=== PATIENT | female | born 1950 | race Caucasian/White ===

== ENCOUNTER → 2021-02-06 15:54 | Outpatient (CLI) | payer MEDICARE, OTHER, SELFPAY ==
--- NOTE | 2021-02-06 | DI.ECHO.S_ITS ---
Version: 1 Study ID: [id number] [place] [id number] Name: NATALIE ROSSI Study Date: 02/06/2021, 4: 56 PM : 1950 BP: 145 / 76 mmHg Gender: Female Height: 67 in Age: 70 Years Weight: 185 lb BSA: 1.96 mA? Ordering: MARTHA DAVID Referring: MARTHA DAVID Clinician: Miri Lopes Reason For Study: CHEST PAIN History: Summary Statements Normal sinus rhythm. Normal LV size, wall thickness, wall motion and LV systolic function. EF is 65-70%. Normal chamber sizes. Aortic sclerosis without stenosis. Otherwise no significant valvular abnormalities. Compared to prior study 10/04/2010 no significant changes have occurred. Procedure: A two-dimensional transthoracic echocardiogram with color flow and Doppler was performed. Comparison is made with the echocardiogram of 10/04/2010. The study quality was technically difficult. The patient was in sinus rhythm with heart rates between 79-90 bpm during the exam. Left Ventricle: The left ventricle is normal in size and wall thickness. The ejection fraction is estimated to be 65-70%. Diastolic parameters suggest a relaxation abnormality of the left ventricle, consistent with probable normal filling pressures. E/A reversal. Right Ventricle: The right ventricle is normal in size and function. Atria: The left atrial size is normal. Right atrial size is normal. There is no Doppler evidence for an interatrial shunt. Mitral Valve: The mitral valve is normal in structure and function. There is mild mitral annular calcification. There is trace mitral regurgitation. Aortic Valve: The aortic valve is trileaflet. The aortic valve is slightly calcified. There is no aortic valve stenosis. No aortic regurgitation is present. Tricuspid Valve: The tricuspid valve is normal in structure and function. There is trace tricuspid regurgitation. Pulmonic Valve: The pulmonic valve leaflets are thin and pliable; valve motion is normal. There is no pulmonic valvular regurgitation. Great Vessels: The aortic root is normal size. The dimensions of the ascending aorta are normal. The inferior vena cava was not well visualized. Pericardium/ Pleura: There is no pericardial effusion. There is no pleural effusion. 2D and M-Mode Measurements and Calculations LVIDd: 3.6 cm LVOT diam: 1.90 cm LVIDs: 2.45 cm Ao root diam: 2.6 cm IVSd: 0.97 cm asc Aorta Diam: 2.9 cm LVPWd: 1.13 cm Ao Arch Diam (Prox Trans): 2.41 cm LV braxton. diameter/BSA (cm/m^2): 1.85 LV sys. diameter/BSA (cm/m^2): 1.25 RVD1 (basal): 2.7 cm TAPSE: 1.81 cm LA A4 area: 14.4 jail keeper? RA area: 10.7 jail keeper? LA A2 area: 18.7 jail keeper? RA long axis: 3.8 cm LA length (vol): 4.6 cm RA vol: 25.4 ml LA vol: 49.8 ml RA : 13.0 ml/mA? LA vol index: 25.5 ml/mA? Doppler Measurements and Calculations Ao V2 max: 146.1 cm/sec LVOT Max Anthony: 106.7 cm/sec Ao V2 mean: 109.2 cm/sec LV V1 max P.6 mmHg Ao V2 VTI: 26.6 cm LV V1 VTI: 24.6 cm Ao max P.5 mmHg Ao mean P.2 mmHg EL(I,D): 2.6 jail keeper? EL(V,D): 2.06 jail keeper? EL indexed to BSA (cm^2/m^2): 1.33 sev ratio: 0.92 MV E max anthony: 68.1 cm/sec MV dec time: 0.27 sec MV A max anthony: 86.7 cm/sec MV E/A: 0.79 Med Peak E' Anthony: 6.6 cm/sec Lat Peak E' Anthony: 5.4 cm/sec E/e' average: 11.5 PA V2 max: 100.1 cm/sec PA mean P.6 mmHg Electronically signed by: Nyasia Whitley M.D. 02/06/2021, 9: 24 PM
== END ==
PROVIDERS: PCP Family Medicine; Referring Provider Internal Medicine Cardiovascular Disease; Visit Provider Internal Medicine Cardiovascular Disease
DX: R07.9 Chest pain, unspecified (principal); I35.8 Other nonrheumatic aortic valve disorders
CPT/HCPCS: 93306

== ENCOUNTER 2024-08-19 22:05 | Emergency (ER) | payer MEDICARE, OTHER, SELFPAY ==
[2024-08-19] VITALS (30 sets, daily range): BP systolic 66–160; BP diastolic 35–68; PULSE 66–89; RESP 12–34; TEMP 36.1; O2SAT 94–99; BMI 29.3
--- NOTE | 2024-08-19 22:09 | EKG_ITS ---
[facility] [address] [place] [address] Test Date: 2024-08-19 Pat Name: Paula Araya Department: [facility] Room: Gender: Female Test Manager: : 1950 Requested By: Order Number: [id number] Reading MD: Alan Bowen Measurements Intervals [place] Rate: 82 P: 53 W[place]: 196 QRS: 63 QRSD: 88 T: 260 QT: 390 QTc: 455 Interpretive Statements Sinus rhythm with occasional premature ventricular complexes Marked ST abnormality, possible lateral subendocardial injury Electronically Signed On 08-23-2024 20:09:30 PDT by Alan Bowen
--- NOTE | 2024-08-19 22:14 | DI.RAD.S_ITS ---
PROCEDURE: XR CHEST 1V INDICATIONS: dispnea TECHNIQUE: One view of the chest was acquired. COMPARISON: [facility], CR, XR CHEST 1 VIEW, 08/06/2024, 3:15. FINDINGS: Surgical changes and devices: None. Lungs and pleura: Mild increased pulmonary vascularity. Mediastinum: Mediastinal contours appear normal. Heart size is normal. Bones and chest wall: No suspicious bony lesions. Overlying soft tissues appear unremarkable. IMPRESSION: Increased vascularity suggestive of edema. Dictated by: Amy Escudero M.D. on 08/19/2024 at 22:45 Approved by: Amy Escudero M.D. on 08/19/2024 at 22:45
--- NOTE | 2024-08-19 22:15 | ED_ITS ---
HPI - General Adult <Shey Boyd MD - Last Filed: 08/21/24 01:22> General Chief complaint: Shortness of Breath/Dyspnea Stated complaint: respir failure Time Seen by Provider: 08/19/24 22:11 History of Present Illness HPI narrative: 73-year-old woman with a history of NSTEMI discharged from [facility] on August 09 after medical treatment and declining heart catheterization, hypertension, type 2 diabetes continued tobacco abuse, chronic kidney disease, COPD. 911 was called today with complaints for dyspnea and chest pain. On arrival they describe primary respiratory arrest with pulses maintained. With bagging she was becoming more alert. She was placed on BiPAP, nitro paste was placed and she was brought to the emergency room for further evaluation. She remains in acute respiratory distress, tripoding and having difficulty cooperating secondary to severe respiratory distress. Able to communicate with hand signals and has difficulty getting even a single word out. Related Data Home Medications Medication Instructions Recorded Confirmed ASPIRIN (#ASPIR 81) 81 mg PO BID ##0 01/28/11 Ascorbic Acid/Bioflavonoid 1 tab PO AMINS ##0 01/28/11 (#VITAMIN C) Fish Oil 1,000 mg PO Q DAY ##0 01/28/11 MULTIVITAMIN (FLINTSTONES) 1 ctb PO ##0 01/28/11 ezetimibe 10 mg tablet (Zetia) 10 mg PO HS ##0 01/28/11 glipizide 10 mg tablet, extended 20 mg PO BID ##0 01/28/11 release 24 hr (Glucotrol XL) losartan 25 mg tablet (Cozaar) ##0 01/28/11 simvastatin 10 mg tablet (Zocor) ##0 01/28/11 Allergies Allergy/AdvReac Type Severity Reaction Status Date / Time No Known Drug Allergies Allergy Verified 08/19/24 22:57 Review of Systems <Shey Boyd MD - Last Filed: 08/21/24 01:22> Review of Systems ROS Unobtainable: Unobtainable due to medical condition Patient History <Shey Boyd MD - Last Filed: 08/21/24 01:22> Medical History (Updated 08/20/24 @ 01:24 by Shey Boyd MD) Continuous tobacco abuse Hyperlipidemia Diabetes Coronary artery disease Hypertension Social History Smoking Status: Current every day smoker Exam <Shey Boyd MD - Last Filed: 08/21/24 01:22> Narrative Exam Narrative: General: Chronically ill-appearing in severe respiratory distress, unable to speak, BiPAP in place, tripoding HEENT: Moist mucous membranes, normal sclera with reactive pupils, Respiratory: Lungs with poor respiratory movement throughout Cardiac: Regular rate and rhythm overlying pulmonary noises make further cardiac evaluation difficult Abdomen: Soft, nontender, no rebound or guarding, no flank pain Skin: Dry, pale Neurologic: Globally weak with no localizing findings Extremities: 2+ bilateral lower extremity edema Initial Vital Signs Initial Vital Signs: Vital Signs Temperature 97.0 F L 08/19/24 22:06 Pulse Rate 89 08/19/24 22:06 Respiratory Rate 34 H 08/19/24 22:06 Blood Pressure 84/56 L 08/19/24 22:06 Pulse Oximetry 94 08/19/24 22:06 Oxygen Delivery Method CPAP 08/19/24 22:06 <Tiffany Alcantar DO - Last Filed: 08/20/24 16:22> Initial Vital Signs Initial Vital Signs: Vital Signs Temperature 97.0 F L 08/19/24 22:06 Pulse Rate 89 08/19/24 22:06 Respiratory Rate 34 H 08/19/24 22:06 Blood Pressure 84/56 L 08/19/24 22:06 Pulse Oximetry 94 08/19/24 22:06 Oxygen Delivery Method CPAP 08/19/24 22:06 Course <Shey Boyd MD - Last Filed: 08/21/24 01:22> Orders Ordered: Discontinued Medications Albuterol/Ipratropium (Albuterol/Ipratropium 3 Ml Ampul) 3 ml INH NOW ONE Stop: 08/19/24 23:25 Last Admin: 08/19/24 23:28 Dose: 3 ml Documented By: SUSAN Aspirin (Aspirin 81 Mg Chew Tab) 324 mg PO NOW ONE Stop: 08/20/24 09:39 Last Admin: 08/20/24 10:47 Dose: 324 mg Documented By: RB Furosemide (Furosemide 40 Mg/4 Ml Vial) 40 mg IV NOW ONE Stop: 08/20/24 08:09 Last Admin: 08/20/24 08:47 Dose: 40 mg Documented By: RB Heparin Sodium (Porcine) (Heparin 5,000 Unit/Ml Vial) 5,000 unit 60 unit/kg (5000 unit) IV NOW ONE Stop: 08/20/24 01:18 Last Admin: 08/20/24 01:22 Dose: 5,000 unit Documented By: MAYRA NOREPINEPHRINE BITARTRATE/D5W (Levophed) 4 mg in 250 mls @ 31.876 mls/hr IV TITRATE ISAI; Protocol Last Titration: 08/20/24 10:03 Dose: Infused Documented By: Titration: 08/20/24 05:03 Dose: 0 mcg/kg/min, 0 mls/hr Documented By: Titration: 08/20/24 01:11 Dose: 0.04 mcg/kg/min, 12.75 mls/hr Documented By: Titration: 08/20/24 00:15 Dose: 0.06 mcg/kg/min, 19.126 mls/hr Documented By: Titration: 08/19/24 23:41 Dose: 0.08 mcg/kg/min, 25.501 mls/hr Documented By: DKDot Titration: 08/19/24 23:32 Dose: 0.1 mcg/kg/min, 31.876 mls/hr Documented By: DKDot Titration: 08/19/24 22:56 Dose: 0.12 mcg/kg/min, 38.251 mls/hr Documented By: Admin: 08/19/24 22:48 Dose: 0.1 mcg/kg/min, 31.876 mls/hr Documented By: SUSAN Furosemide 80 mg/ Sodium (Chloride) 58 mls @ 116 mls/hr IV NOW ONE Stop: 08/19/24 23:09 Last Infusion: 08/19/24 23:47 Dose: Infused Documented By: Admin: 08/19/24 23:15 Dose: 116 mls/hr Documented By: SUSAN Heparin Sodium/Dextrose (Heparin Drip) 25,000 unit in 500 mls @ 20.401 mls/hr IV CONT ISAI; Protocol Last Titration: 08/20/24 10:50 Dose: 10 units/kg/hr, 17.001 mls/hr Documented By: RB Co-signed By: HALEY Titration: 08/20/24 09:26 Dose: 10 units/kg/hr, 17.001 mls/hr Documented By: RB Co-signed By: HALEY(2) Titration: 08/20/24 08:57 Dose: 0 units/kg/hr, 0 mls/hr Documented By: AVE Co-signed By: HALEY Admin: 08/20/24 01:26 Dose: 12 units/kg/hr, 20.401 mls/hr Documented By: MAYRA Co-signed By: SUSAN Oxycodone/Acetaminophen (Oxycodone/Acetaminophen 5/325 Tablet) 1 tab PO NOW ONE Stop: 08/20/24 07:11 Last Admin: 08/20/24 08:47 Dose: 1 tab Documented By: AVE Vital Signs Vital signs: Vital Signs - 8 hr 08/20/24 08:25 08/20/24 08:30 08/20/24 08:35 Temperature Pulse Rate 79 83 83 Respiratory Rate 13 17 37 H Blood Pressure Pulse Oximetry 95 92 Oxygen Delivery Method Nasal Cannula Nasal Cannula Oxygen Flow Rate 4 4 08/20/24 08:44 08/20/24 08:45 08/20/24 08:50 Temperature Pulse Rate 81 78 75 Respiratory Rate 22 22 Blood Pressure Pulse Oximetry 92 Oxygen Delivery Method Room Air Oxygen Flow Rate 08/20/24 09:00 08/20/24 09:00 08/20/24 09:15 Temperature Pulse Rate 76 73 Respiratory Rate 19 17 Blood Pressure 144/88 H Pulse Oximetry 92 93 Oxygen Delivery Method Room Air Room Air Oxygen Flow Rate 08/20/24 09:16 08/20/24 09:16 08/20/24 09:30 Temperature Pulse Rate 74 Respiratory Rate 15 Blood Pressure 151/72 H 135/68 Pulse Oximetry 93 Oxygen Delivery Method Room Air Oxygen Flow Rate 08/20/24 09:30 08/20/24 09:45 08/20/24 09:45 Temperature Pulse Rate 75 75 Respiratory Rate 19 20 Blood Pressure 158/70 H Pulse Oximetry 90 L 91 Oxygen Delivery Method Room Air Room Air Oxygen Flow Rate 08/20/24 10:00 08/20/24 10:00 08/20/24 10:15 Temperature Pulse Rate 75 74 Respiratory Rate 15 17 Blood Pressure 125/55 L Pulse Oximetry 86 L Oxygen Delivery Method Room Air Oxygen Flow Rate 08/20/24 10:15 08/20/24 10:30 08/20/24 10:30 Temperature Pulse Rate 72 Respiratory Rate 22 Blood Pressure 117/58 L 116/56 L Pulse Oximetry 98 Oxygen Delivery Method Oximask Oxygen Flow Rate 2 08/20/24 10:54 Temperature 97.9 F Pulse Rate Respiratory Rate Blood Pressure Pulse Oximetry Oxygen Delivery Method Oxygen Flow Rate <Tiffany Alcantar DO - Last Filed: 08/20/24 16:22> Orders Ordered: Discontinued Medications Albuterol/Ipratropium (Albuterol/Ipratropium 3 Ml Ampul) 3 ml INH NOW ONE Stop: 08/19/24 23:25 Last Admin: 08/19/24 23:28 Dose: 3 ml Documented By: POLOB Aspirin (Aspirin 81 Mg Chew Tab) 324 mg PO NOW ONE Stop: 08/20/24 09:39 Last Admin: 08/20/24 10:47 Dose: 324 mg Documented By: RB Furosemide (Furosemide 40 Mg/4 Ml Vial) 40 mg IV NOW ONE Stop: 08/20/24 08:09 Last Admin: 08/20/24 08:47 Dose: 40 mg Documented By: RB Heparin Sodium (Porcine) (Heparin 5,000 Unit/Ml Vial) 5,000 unit 60 unit/kg (5000 unit) IV NOW ONE Stop: 08/20/24 01:18 Last Admin: 08/20/24 01:22 Dose: 5,000 unit Documented By: MAYRA NOREPINEPHRINE BITARTRATE/D5W (Levophed) 4 mg in 250 mls @ 31.876 mls/hr IV TITRATE ISAI; Protocol Last Titration: 08/20/24 10:03 Dose: Infused Documented By: Titration: 08/20/24 05:03 Dose: 0 mcg/kg/min, 0 mls/hr Documented By: Titration: 08/20/24 01:11 Dose: 0.04 mcg/kg/min, 12.75 mls/hr Documented By: Titration: 08/20/24 00:15 Dose: 0.06 mcg/kg/min, 19.126 mls/hr Documented By: Titration: 08/19/24 23:41 Dose: 0.08 mcg/kg/min, 25.501 mls/hr Documented By: Titration: 08/19/24 23:32 Dose: 0.1 mcg/kg/min, 31.876 mls/hr Documented By: Titration: 08/19/24 22:56 Dose: 0.12 mcg/kg/min, 38.251 mls/hr Documented By: Admin: 08/19/24 22:48 Dose: 0.1 mcg/kg/min, 31.876 mls/hr Documented By: SUSAN Furosemide 80 mg/ Sodium (Chloride) 58 mls @ 116 mls/hr IV NOW ONE Stop: 08/19/24 23:09 Last Infusion: 08/19/24 23:47 Dose: Infused Documented By: Admin: 08/19/24 23:15 Dose: 116 mls/hr Documented By: SUSAN Heparin Sodium/Dextrose (Heparin Drip) 25,000 unit in 500 mls @ 20.401 mls/hr IV CONT ISAI; Protocol Last Titration: 08/20/24 10:50 Dose: 10 units/kg/hr, 17.001 mls/hr Documented By: AVE Co-signed By: HALEY Titration: 08/20/24 09:26 Dose: 10 units/kg/hr, 17.001 mls/hr Documented By: RB Co-signed By: HALEY(2) Titration: 08/20/24 08:57 Dose: 0 units/kg/hr, 0 mls/hr Documented By: RB Co-signed By: HALEY Admin: 08/20/24 01:26 Dose: 12 units/kg/hr, 20.401 mls/hr Documented By: MAYRA Co-signed By: SUSAN Oxycodone/Acetaminophen (Oxycodone/Acetaminophen 5/325 Tablet) 1 tab PO NOW ONE Stop: 08/20/24 07:11 Last Admin: 08/20/24 08:47 Dose: 1 tab Documented By: AVE Vital Signs Vital signs: Vital Signs - 8 hr 08/20/24 08:25 08/20/24 08:30 08/20/24 08:35 Temperature Pulse Rate 79 83 83 Respiratory Rate 13 17 37 H Blood Pressure Pulse Oximetry 95 92 Oxygen Delivery Method Nasal Cannula Nasal Cannula Oxygen Flow Rate 4 4 08/20/24 08:44 08/20/24 08:45 08/20/24 08:50 Temperature Pulse Rate 81 78 75 Respiratory Rate 22 22 Blood Pressure Pulse Oximetry 92 Oxygen Delivery Method Room Air Oxygen Flow Rate 08/20/24 09:00 08/20/24 09:00 08/20/24 09:15 Temperature Pulse Rate 76 73 Respiratory Rate 19 17 Blood Pressure 144/88 H Pulse Oximetry 92 93 Oxygen Delivery Method Room Air Room Air Oxygen Flow Rate 08/20/24 09:16 08/20/24 09:16 08/20/24 09:30 Temperature Pulse Rate 74 Respiratory Rate 15 Blood Pressure 151/72 H 135/68 Pulse Oximetry 93 Oxygen Delivery Method Room Air Oxygen Flow Rate 08/20/24 09:30 08/20/24 09:45 08/20/24 09:45 Temperature Pulse Rate 75 75 Respiratory Rate 19 20 Blood Pressure 158/70 H Pulse Oximetry 90 L 91 Oxygen Delivery Method Room Air Room Air Oxygen Flow Rate 08/20/24 10:00 08/20/24 10:00 08/20/24 10:15 Temperature Pulse Rate 75 74 Respiratory Rate 15 17 Blood Pressure 125/55 L Pulse Oximetry 86 L Oxygen Delivery Method Room Air Oxygen Flow Rate 08/20/24 10:15 08/20/24 10:30 08/20/24 10:30 Temperature Pulse Rate 72 Respiratory Rate 22 Blood Pressure 117/58 L 116/56 L Pulse Oximetry 98 Oxygen Delivery Method Oximask Oxygen Flow Rate 2 08/20/24 10:54 Temperature 97.9 F Pulse Rate Respiratory Rate Blood Pressure Pulse Oximetry Oxygen Delivery Method Oxygen Flow Rate Medical Decision Making <Shey Boyd MD - Last Filed: 08/21/24 01:22> Lab Data 08/19/24 22:10 08/19/24 22:10 Labs: Lab Results 08/19/24 08/19/24 08/20/24 Range/Units 22:10 22:15 00:13 WBC 12.4 H (4.5-11.0) X10^3/uL RBC 5.20 (4.0-5.2) X10^6/uL Hgb 16.5 H (12.0-16.0) g/dL Hct 48.6 H (36-46) % MCV 93.4 (80-100) fL MCH 31.7 (26-34) PG MCHC 34.0 (30-36) % RDW 16.4 H (11.6-14.8) % Plt Count 225 (150-400) X10^3/uL Neut % (Auto) 80.6 H (50-75) % Lymph % (Auto) 13.3 L (25-40) % [place] % (Auto) 4.7 (3-14) % Eos % (Auto) 0.8 L (2-4) % Baso % (Auto) 0.6 (0-2) % Neut # (Auto) 15732 H (8619-4409) /uL Lymph # (Auto) 1700 (2195-1689) /uL [place] # (Auto) 600 (0-900) /uL Eos # (Auto) 100 (0-450) /uL Baso # (Auto) 100 (0-100) /uL APTT (25.1-36.5) SECONDS D-Dimer 1859 H (<500) ng/ml ABG pH 7.32 L (7.35-7.45) ABG pCO2 50.2 H (35-45) mmHg ABG pO2 89 (80-100) mmHg ABG HCO3 26 (23-27) mmol/L ABG Total CO2 25 (23-27) mmol/L ABG O2 Saturation 96 (95-100) % ABG Base Excess -1.1 (-2-3) mmol/L Kamran Test Yes, passed VBG pH (7.33-7.43) VBG pCO2 (45-50) mmHg VBG pO2 (35-45) mmHg VBG HCO3 (24-28) mmol/L VBG Total CO2 (24-29) mmol/L VBG O2 Saturation (70-75) % VBG Base Excess (0-4) mmol/L Respiration Rate 16 O2 Delivery Device Bipap FiO2 % 60 % Pressure Support 6 Sodium 141 (137-145) mmol/L Potassium 3.7 (3.4-5.1) mmol/L Chloride 106 (98-107) mmol/L Carbon Dioxide 26 (22-32) mmol/L BUN 21 H (7-17) mg/dL Creatinine 0.80 (0.52-1.04) mg/dL Estimated GFR > 60 (>60) mL/min BUN/Creatinine Ratio 26.3 H (6-22) Glucose 266 H (80-110) mg/dL Lactate 3.3 H 2.3 H (0.7-2.1) mmol/L Calcium 8.4 (8.4-10.2) mg/dL Magnesium 2.0 (1.6-2.3) mg/dL Total Bilirubin 0.6 (0.2-1.3) mg/dL AST 28 (14-36) IU/L ALT 23 (<35) IU/L Alkaline Phosphatase 68 (38-126) U/L Total Creatine Kinase (30-135) U/L Troponin I 0.014 0.113 H (0.01-0.034) ng/mL NT-Pro-B Natriuret Pep 2650 H (<450) pg/mL Total Protein 6.5 (6.3-8.2) g/dL Albumin 3.7 (3.5-5.0) g/dL Globulin 2.8 (1.7-4.1) g/dL Albumin/Globulin Ratio 1.3 (1.0-2.8) Procalcitonin 0.054 (<0.5) ng/mL 08/20/24 08/20/24 Range/Units 02:09 08:33 WBC (4.5-11.0) X10^3/uL RBC (4.0-5.2) X10^6/uL Hgb (12.0-16.0) g/dL Hct (36-46) % MCV (80-100) fL MCH (26-34) PG MCHC (30-36) % RDW (11.6-14.8) % Plt Count (150-400) X10^3/uL Neut % (Auto) (50-75) % Lymph % (Auto) (25-40) % [place] % (Auto) (3-14) % Eos % (Auto) (2-4) % Baso % (Auto) (0-2) % Neut # (Auto) (9425-0147) /uL Lymph # (Auto) (4328-4232) /uL [place] # (Auto) (0-900) /uL Eos # (Auto) (0-450) /uL Baso # (Auto) (0-100) /uL APTT 92 H* (25.1-36.5) SECONDS D-Dimer (<500) ng/ml ABG pH (7.35-7.45) ABG pCO2 (35-45) mmHg ABG pO2 (80-100) mmHg ABG HCO3 (23-27) mmol/L ABG Total CO2 (23-27) mmol/L ABG O2 Saturation (95-100) % ABG Base Excess (-2-3) mmol/L Kamran Test VBG pH 7.39 (7.33-7.43) VBG pCO2 39.0 L (45-50) mmHg VBG pO2 37 (35-45) mmHg VBG HCO3 23 L (24-28) mmol/L VBG Total CO2 23 L (24-29) mmol/L VBG O2 Saturation 70 (70-75) % VBG Base Excess -1.4 L (0-4) mmol/L Respiration Rate O2 Delivery Device FiO2 % % Pressure Support Sodium (137-145) mmol/L Potassium (3.4-5.1) mmol/L Chloride (98-107) mmol/L Carbon Dioxide (22-32) mmol/L BUN (7-17) mg/dL Creatinine (0.52-1.04) mg/dL Estimated GFR (>60) mL/min BUN/Creatinine Ratio (6-22) Glucose (80-110) mg/dL Lactate (0.7-2.1) mmol/L Calcium (8.4-10.2) mg/dL Magnesium (1.6-2.3) mg/dL Total Bilirubin (0.2-1.3) mg/dL AST (14-36) IU/L ALT (<35) IU/L Alkaline Phosphatase (38-126) U/L Total Creatine Kinase 49 (30-135) U/L Troponin I 0.369 H* (0.01-0.034) ng/mL NT-Pro-B Natriuret Pep (<450) pg/mL Total Protein (6.3-8.2) g/dL Albumin (3.5-5.0) g/dL Globulin (1.7-4.1) g/dL Albumin/Globulin Ratio (1.0-2.8) Procalcitonin (<0.5) ng/mL MDM Narrative Medical decision making narrative: CC: Severe respiratory distress with what sounds like a respiratory arrest prior to arrival Complicating co-morbidities: Recent NSTEMI, left [facility] prior to recommended heart catheterization, continued tobacco use, hypertension, diabetes, hyperlipidemia, COPD Data collected from: patient, medics Medical records reviewed: Discharge summary from [facility] reviewed -NSTEMI. Elevated troponin heparin drip ejection fraction of 45% positive nuclear medicine stress test declined heart catheterization -COPD exacerbation Differential considered: NSTEMI, flash pulmonary edema, severe heart failure, pulmonary infection, pulmonary embolism, pneumothorax, acute COPD exacerbation, acute anemia Exam documented above, pertinent findings include: Patient is in significant respiratory distress, still smells very strong tobacco, bibasilar rales with overall poor air movement, bilateral lower extremity edema Lab Test results independently reviewed as above. Pertinent findings: CBC shows leukocytosis at 12.4 with 81% neutrophils. Hemoconcentration with hemoglobin at 16.5 and hematocrit at 48.6 D-dimer is elevated at 1859 Chemistries show appropriate renal function BNP elevated at 2650 Troponin is not elevated today Procalcitonin is not elevated Repeat trop is elevated at .113 Independently reviewed EKG: EKG shows sinus rhythm at a rate of 82, lateral ST depression Imaging studies independently reviewed: Chest x-ray shows significant congestive heart failure without other pulmonary infiltrate or pleural effusion Consultations: Treatments: Continued hypotension, Levophed is started Nitro paste initially placed by the medics is removed, 80 mg of IV Lasix is given Re-evaluations: Patient is alert, vehemently complaining about BiPAP and would like to take it off. It hurts her nose and deviated septum. Doing much better, weaned to 4L NC with sats in mid 90s Levophed weaning off, 800cc void after lasix Discussion: 73-year-old woman with a history of coronary artery disease admitted to [facility] last week with NSTEMI, positive sestamibi study with recommendation for heart catheterization which patient declined at the time. Today apparently got dramatically worse, has been called 911 and medics describe full respiratory arrest on arrival that responded to bagging without need for chest compressions. She was on BiPAP for approximately 2 hours initially with nitro paste in place. Pressures began falling nitro places removed, Levophed was started peripherally and she was given 80 mg of Lasix. She is now voided 800 cc of urine, has taken off her BiPAP in his comfortable in the mid 90s with nasal cannula at 4 L. her BNP is elevated initial lactic acid was elevated without immediate concern for infection. Lactic acid is trending down. Initial troponin was not detectable and repeat troponin 2 hours later shows a significant increase from 0.014 to 0.113. Her D-dimer is elevated however her respiratory distress is significant enough that she is not going to be able to lay flat for a CT scan. I am going to start heparin for presumed NSTEMI. Once her breathing improves CT PE study can be considered. With the bump in troponin and recent [facility] hospitalization with positive stress test and declined catheterization would like to transfer her back to [facility] to undergo catheterization and stenting if needed this time. We will continue to treat her acute congestive heart failure with Lasix, has been able to wean down Levophed. She still is not able to lay flat, she has 2 peripheral lines at this time. We will discuss with [facility] see if beds are available. Patient is pleased with this plan, her request initially to medics when they picked her up was to take her to [facility] but [place] was the closer facility. Beds available at [facility]. Patient very clearly states she will work with [facility] cardiologists and have heart cath if recommended. Dr Berg, cardiology, will consult. Patient will be admitted to the hospitalist service with transfer to [facility]. Currently, off levophed, on hep gtt, no chest pain, breathing much better with brisk diuresis started after IV lasix, sats are 94-96% on 4L NC. Patient is stable for transfer <Tiffany Alcantar DO - Last Filed: 08/20/24 16:22> Lab Data Labs: Lab Results 08/19/24 08/19/24 08/20/24 Range/Units 22:10 22:15 00:13 WBC 12.4 H (4.5-11.0) X10^3/uL RBC 5.20 (4.0-5.2) X10^6/uL Hgb 16.5 H (12.0-16.0) g/dL Hct 48.6 H (36-46) % MCV 93.4 (80-100) fL MCH 31.7 (26-34) PG MCHC 34.0 (30-36) % RDW 16.4 H (11.6-14.8) % Plt Count 225 (150-400) X10^3/uL Neut % (Auto) 80.6 H (50-75) % Lymph % (Auto) 13.3 L (25-40) % [place] % (Auto) 4.7 (3-14) % Eos % (Auto) 0.8 L (2-4) % Baso % (Auto) 0.6 (0-2) % Neut # (Auto) 51322 H (8283-5867) /uL Lymph # (Auto) 1700 (6313-1348) /uL [place] # (Auto) 600 (0-900) /uL Eos # (Auto) 100 (0-450) /uL Baso # (Auto) 100 (0-100) /uL APTT (25.1-36.5) SECONDS D-Dimer 1859 H (<500) ng/ml ABG pH 7.32 L (7.35-7.45) ABG pCO2 50.2 H (35-45) mmHg ABG pO2 89 (80-100) mmHg ABG HCO3 26 (23-27) mmol/L ABG Total CO2 25 (23-27) mmol/L ABG O2 Saturation 96 (95-100) % ABG Base Excess -1.1 (-2-3) mmol/L Kamran Test Yes, passed VBG pH (7.33-7.43) VBG pCO2 (45-50) mmHg VBG pO2 (35-45) mmHg VBG HCO3 (24-28) mmol/L VBG Total CO2 (24-29) mmol/L VBG O2 Saturation (70-75) % VBG Base Excess (0-4) mmol/L Respiration Rate 16 O2 Delivery Device Bipap FiO2 % 60 % Pressure Support 6 Sodium 141 (137-145) mmol/L Potassium 3.7 (3.4-5.1) mmol/L Chloride 106 (98-107) mmol/L Carbon Dioxide 26 (22-32) mmol/L BUN 21 H (7-17) mg/dL Creatinine 0.80 (0.52-1.04) mg/dL Estimated GFR > 60 (>60) mL/min BUN/Creatinine Ratio 26.3 H (6-22) Glucose 266 H (80-110) mg/dL Lactate 3.3 H 2.3 H (0.7-2.1) mmol/L Calcium 8.4 (8.4-10.2) mg/dL Magnesium 2.0 (1.6-2.3) mg/dL Total Bilirubin 0.6 (0.2-1.3) mg/dL AST 28 (14-36) IU/L ALT 23 (<35) IU/L Alkaline Phosphatase 68 (38-126) U/L Total Creatine Kinase (30-135) U/L Troponin I 0.014 0.113 H (0.01-0.034) ng/mL NT-Pro-B Natriuret Pep 2650 H (<450) pg/mL Total Protein 6.5 (6.3-8.2) g/dL Albumin 3.7 (3.5-5.0) g/dL Globulin 2.8 (1.7-4.1) g/dL Albumin/Globulin Ratio 1.3 (1.0-2.8) Procalcitonin 0.054 (<0.5) ng/mL 08/20/24 08/20/24 Range/Units 02:09 08:33 WBC (4.5-11.0) X10^3/uL RBC (4.0-5.2) X10^6/uL Hgb (12.0-16.0) g/dL Hct (36-46) % MCV (80-100) fL MCH (26-34) PG MCHC (30-36) % RDW (11.6-14.8) % Plt Count (150-400) X10^3/uL Neut % (Auto) (50-75) % Lymph % (Auto) (25-40) % [place] % (Auto) (3-14) % Eos % (Auto) (2-4) % Baso % (Auto) (0-2) % Neut # (Auto) (9610-4895) /uL Lymph # (Auto) (2235-9099) /uL [place] # (Auto) (0-900) /uL Eos # (Auto) (0-450) /uL Baso # (Auto) (0-100) /uL APTT 92 H* (25.1-36.5) SECONDS D-Dimer (<500) ng/ml ABG pH (7.35-7.45) ABG pCO2 (35-45) mmHg ABG pO2 (80-100) mmHg ABG HCO3 (23-27) mmol/L ABG Total CO2 (23-27) mmol/L ABG O2 Saturation (95-100) % ABG Base Excess (-2-3) mmol/L Kamran Test VBG pH 7.39 (7.33-7.43) VBG pCO2 39.0 L (45-50) mmHg VBG pO2 37 (35-45) mmHg VBG HCO3 23 L (24-28) mmol/L VBG Total CO2 23 L (24-29) mmol/L VBG O2 Saturation 70 (70-75) % VBG Base Excess -1.4 L (0-4) mmol/L Respiration Rate O2 Delivery Device FiO2 % % Pressure Support Sodium (137-145) mmol/L Potassium (3.4-5.1) mmol/L Chloride (98-107) mmol/L Carbon Dioxide (22-32) mmol/L BUN (7-17) mg/dL Creatinine (0.52-1.04) mg/dL Estimated GFR (>60) mL/min BUN/Creatinine Ratio (6-22) Glucose (80-110) mg/dL Lactate (0.7-2.1) mmol/L Calcium (8.4-10.2) mg/dL Magnesium (1.6-2.3) mg/dL Total Bilirubin (0.2-1.3) mg/dL AST (14-36) IU/L ALT (<35) IU/L Alkaline Phosphatase (38-126) U/L Total Creatine Kinase 49 (30-135) U/L Troponin I 0.369 H* (0.01-0.034) ng/mL NT-Pro-B Natriuret Pep (<450) pg/mL Total Protein (6.3-8.2) g/dL Albumin (3.5-5.0) g/dL Globulin (1.7-4.1) g/dL Albumin/Globulin Ratio (1.0-2.8) Procalcitonin (<0.5) ng/mL Imaging Data CT scan - chest: Radiologist's Impression: PROCEDURE: CT ANGIO CHEST PE PROTOCOL INDICATIONS: hypoxia TECHNIQUE: After the administration of intravenous contrast, 2 mm thick sections acquired from the pulmonary apices to the posterior costophrenic angles. 3-dimensional maximum intensity projection (MIP) coronal and sagittal reformats were then acquired through the thorax. For radiation dose reduction, the following was used: automated exposure control, adjustment of mA and/or kV according to patient size. COMPARISON: [facility], CR, XR CHEST 1V, 08/19/2024, 22:13. FINDINGS: Image quality: Diagnostic. Pulmonary arteries: Pulmonary arteries are normal in size, and demonstrate no intraluminal filling defects to suggest central pulmonary embolism. Lower Neck: No enlarged lymph nodes. Thyroid: No thyroid nodules which require sonographic follow up, per consensus guidelines. Axillae: No enlarged lymph nodes. Chest Wall: Unremarkable. Bones: Age-appropriate bony degenerative changes are seen. Accentuated thoracic kyphosis is seen. Lungs and Pleura: No pneumothorax or pleural effusions. Mild generalized ground-glass opacity can be seen. Mild dependent atelectasis is seen. No consolidation or suspicious nodules. Heart: Heart size is normal. No pericardial effusion. Advanced coronary artery CT calcification with presumed stents can be seen. Thoracic Vessels: No aortic aneurysm. There is narrowing of the right vein, with associated collateral vein formation within the right chest wall. Mediastinum and Analy: Mildly enlarged mediastinal lymph nodes are seen, including a precarinal lymph node measuring 13 x 20 mm. Esophagus: No wall thickening. No hiatal hernia. Upper Abdomen: The spleen is enlarged, measuring 13.7 cm AP. The liver also is enlarged. There is reflux of contrast seen into the inferior vena cava and into the hepatic veins. The visualized portions of the upper abdominal structures are otherwise unremarkable for imaging technique. IMPRESSION: No pulmonary embolus. Generalized ground-glass opacity can be seen within the lungs. This is nonspecific, although mild pulmonary edema is suspected. Mildly enlarged mediastinal lymph nodes are seen, which are most likely reactive. Differential diagnosis includes neoplasm. No cardiomegaly. Note is made of narrowing of the right brachiocephalic vein, with collateral vein formation within the right chest wall. Additional findings: There is advanced coronary artery calcification, with presumed stents Mild hepatosplenomegaly Dictated by: Fawad Iqbal M.D. on 08/20/2024 at 6:53 MDM Narrative Medical decision making narrative: CC: Severe respiratory distress with what sounds like a respiratory arrest prior to arrival Complicating co-morbidities: Recent NSTEMI, left [facility] prior to recommended heart catheterization, continued tobacco use, hypertension, diabetes, hyperlipidemia, COPD Data collected from: patient, medics Medical records reviewed: Discharge summary from [facility] reviewed -NSTEMI. Elevated troponin heparin drip ejection fraction of 45% positive nuclear medicine stress test declined heart catheterization -COPD exacerbation Differential considered: NSTEMI, flash pulmonary edema, severe heart failure, pulmonary infection, pulmonary embolism, pneumothorax, acute COPD exacerbation, acute anemia Exam documented above, pertinent findings include: Patient is in significant respiratory distress, still smells very strong tobacco, bibasilar rales with overall poor air movement, bilateral lower extremity edema Lab Test results independently reviewed as above. Pertinent findings: CBC shows leukocytosis at 12.4 with 81% neutrophils. Hemoconcentration with hemoglobin at 16.5 and hematocrit at 48.6 D-dimer is elevated at 1859 Chemistries show appropriate renal function BNP elevated at 2650 Troponin is not elevated today Procalcitonin is not elevated Repeat trop is elevated at .113 Independently reviewed EKG: EKG shows sinus rhythm at a rate of 82, lateral ST depression Imaging studies independently reviewed: Chest x-ray shows significant congestive heart failure without other pulmonary infiltrate or pleural effusion Consultations: Treatments: Continued hypotension, Levophed is started Nitro paste initially placed by the medics is removed, 80 mg of IV Lasix is given Re-evaluations: Patient is alert, vehemently complaining about BiPAP and would like to take it off. It hurts her nose and deviated septum. Doing much better, weaned to 4L NC with sats in mid 90s Levophed weaning off, 800cc void after lasix Discussion: 73-year-old woman with a history of coronary artery disease admitted to [facility] last week with NSTEMI, positive sestamibi study with recommendation for heart catheterization which patient declined at the time. Today apparently got dramatically worse, has been called 911 and medics describe full respiratory arrest on arrival that responded to bagging without need for chest compressions. She was on BiPAP for approximately 2 hours initially with nitro paste in place. Pressures began falling nitro places removed, Levophed was started peripherally and she was given 80 mg of Lasix. She is now voided 800 cc of urine, has taken off her BiPAP in his comfortable in the mid 90s with nasal cannula at 4 L. her BNP is elevated initial lactic acid was elevated without immediate concern for infection. Lactic acid is trending down. Initial troponin was not detectable and repeat troponin 2 hours later shows a significant increase from 0.014 to 0.113. Her D-dimer is elevated however her respiratory distress is significant enough that she is not going to be able to lay flat for a CT scan. I am going to start heparin for presumed NSTEMI. Once her breathing improves CT PE study can be considered. With the bump in troponin and recent [facility] hospitalization with positive stress test and declined catheterization would like to transfer her back to [facility] to undergo catheterization and stenting if needed this time. We will continue to treat her acute congestive heart failure with Lasix, has been able to wean down Levophed. She still is not able to lay flat, she has 2 peripheral lines at this time. We will discuss with [facility] see if beds are available. Patient is pleased with this plan, her request initially to medics when they picked her up was to take her to [facility] but [place] was the closer facility. Beds available at [facility]. Patient very clearly states she will work with [facility] cardiologists and have heart cath if recommended. Dr Berg, cardiology, will consult. Patient will be admitted to the hospitalist service with transfer to [facility]. Currently, off levophed, on hep gtt, no chest pain, breathing much better with brisk diuresis started after IV lasix, sats are 94-96% on 4L NC. Patient is stable for transfer 0700 Dr. Alcantar , signed out to me by Dr. Boyd I have seen evaluated patient myself. 3-4 L nasal cannula. Overall feels everything has gotten much better. Denies any kind of chest pain. Is hunched over but reports that is from her back pain. She was wanting her Percocet. She was urinated bout 1500 cc. Currently on heparin drip for presumed NSTEMI and possible PE. NOT on Levophed. Will attempt to get a CT scan now that she was breathing better. Awaiting for bed to be available at [facility]. Given another dose of Lasix 40 mg she continues to urinate, weaning down oxygen. 0915 Dr. Raza hospitalist at [facility] is very familiar with patient reports he was going to discharged her. She was particular and who does her cardiac stents. Recommends I talked to patient about if she was willing to have stents placed at [facility]. I have spoken with patient at length. She was agreeable to have stents at [facility]'s lung she talks to Dr. Whitley first. Dr. Raza accepts patient Patient currently off oxygen 92-94% on room air Patient continues on heparin drip troponin officially positive 0.369. She does have EKGs changes with ST depression. She was given aspirin Critical Care Time <Shey Boyd MD - Last Filed: 08/21/24 01:22> Critical Care Time Critical Care Time: Yes Total Critical Care Time: 39 Attestation: Critical care time is separate from other billable procedures. There is a high probability of a significant, sudden or life-threatening deterioration that requires my full and direct attention, intervention and personal management. This critical care time includes consultation with family and other consulting doctors, review of records, and interpretation of data from labs, EKGs and imaging as well as managements of acute respiratory failure, concern for cardiogenic shock, NSTEMI, IV management of severe congestive heart failure and significant time spent in coordinating transfer of care Discharge Plan Departure Patient Disposition: [facility] Clinical Impression: Acute non-ST elevation myocardial infarction (NSTEMI), Acute exacerbation of chronic obstructive airways disease, Acute hypoxic respiratory failure Acute CHF Qualifiers: Heart failure type: unspecified Qualified Code(s): I50.9 - Heart failure, unspecified Prescriptions: No Action losartan [Cozaar] 25 MG tablet Qty: 0 simvastatin [Zocor] 10 MG tablet Qty: 0 ezetimibe [Zetia] 10 MG tablet 10 mg PO HS Qty: 0 glipizide [Glucotrol XL] 10 MG tablet extended release 24hr 20 mg PO BID Qty: 0 ASPIRIN (#ASPIR 81) 81 mg PO BID Qty: 0 MULTIVITAMIN (FLINTSTONES) 1 ctb PO Qty: 0 Ascorbic Acid/Bioflavonoid (#VITAMIN C) 1 tab PO AMINS Qty: 0 Fish Oil 1,000 mg PO Q DAY Qty: 0 Referrals: Crescencio Calixto MD [Primary Care Provider] -
[2024-08-19 22:27] LABS: Add Manual Diff / Slide Review NO; Basophils Absolute Auto 100 /uL (0-100); Basophils Percent Auto 0.6 % (0-2); Eosinophils Absolute Auto 100 /uL (0-450); Eosinophils Percent Auto 0.8 % (2-4); Hematocrit 48.6 % (36-46); Hemoglobin 16.5 g/dL (12.0-16.0); Lymphocytes Absolute Auto 1700 /uL (1100-4500); Lymphocytes Percent Auto 13.3 % (25-40); Mean Corpuscular Hemoglobin 31.7 PG (26-34); Mean Corpuscular Volume 93.4 fL (80-100); Monocytes Absolute Auto 600 /uL (0-900); Monocytes Percent Auto 4.7 % (3-14); Neutrophils Absolute Auto 10000 /uL (1500-7000); Neutrophils Percent Auto 80.6 % (50-75); Platelet Count 225 X10^3/uL (150-400); Red Cell Distribution Width 16.4 % (11.6-14.8); White Blood Cell Count 12.4 X10^3/uL (4.5-11.0)
[2024-08-19 22:34] LABS: D Dimer 1859 ng/ml (<500)
[2024-08-19 22:40] LABS: Alanine Aminotransferase 23 IU/L (<35); Albumin 3.7 g/dL (3.5-5.0); Albumin Globulin Ratio 1.3 (1.0-2.8); Alkaline Phosphatase 68 U/L (38-126); Aspartate Aminotransferase 28 IU/L (14-36); BUN Creatinine Ratio 26.3 (6-22); Bilirubin Total 0.6 mg/dL (0.2-1.3); Blood Urea Nitrogen 21 mg/dL (7-17); Calcium 8.4 mg/dL (8.4-10.2); Carbon Dioxide 26 mmol/L (22-32); Chloride 106 mmol/L (98-107); Estimated Glomerular Filt Rate > 60 mL/min (>60); Globulin 2.8 g/dL (1.7-4.1); Glucose 266 mg/dL (80-110); HEMOLYSIS < 15 (0-50); Potassium 3.7 mmol/L (3.4-5.1); Sodium 141 mmol/L (137-145); Total Protein 6.5 g/dL (6.3-8.2)
[2024-08-19] MEDS: NOREPINEPHRINE BITARTRATE/D5W 4 MG/250 ML PLAST..BAG 31.876 MG IV (22:48)
[2024-08-19 22:51] LABS: NT-proBNP (BNP-Adult 18+) 2650 pg/mL (<450); Troponin I 0.014 ng/mL (0.01-0.034)
[2024-08-19 22:56] LABS: Procalcitonin 0.054 ng/mL (<0.5)
[2024-08-19 23:09] LABS: Lactate (Lactic Acid) 3.3 mmol/L (0.7-2.1)
[2024-08-19] MEDS: FUROSEMIDE 80 MG in SODIUM CHLORIDE 0.9% 50 ML 116 MG IV (23:15)
[2024-08-19] MEDS: ALBUTEROL/IPRATROPIUM 3 ML AMPUL INH (23:28)
--- NOTE | 2024-08-19 23:44 | RT ---
Patient is very argumentative and contrary to RT. Refusing BIPAP at this time. Nebulized medication delivered. Patient currently on 4L NC. RN will call if BIPAP needed.
[2024-08-19 23:52] LABS: Reflexed Lactate in 2 Hours Y
[2024-08-20] VITALS (92 sets, daily range): BP systolic 116–167; BP diastolic 54–97; PULSE 72–90; RESP 9–37; TEMP 36.6; O2SAT 86–100
[2024-08-20 00:31] LABS: Lactate 2HR (Lactic Acid Rflx) 2.3 mmol/L (0.7-2.1)
[2024-08-20 01:04] LABS: Troponin I 0.113 ng/mL (0.01-0.034)
[2024-08-20] MEDS: HEPARIN 5,000 UNIT/ML VIAL 5000 UNIT IV (01:22)
[2024-08-20] MEDS: HEPARIN DRIP 25,000 UNIT/500 ML IV.SOLN 20.401 UNIT IV (01:26)
--- NOTE | 2024-08-20 01:28 | EKG_ITS ---
[facility] [address] [place] [address] Test Date: 2024-08-20 Pat Name: Paula Araya Department: [facility] Room: Gender: Female Pathologist: : [id number] Requested By: Order Number: [id number] Reading MD: Alan Bowen Measurements Intervals [place] Rate: 71 P: 37 VA: 200 QRS: 41 QRSD: 90 T: 19 QT: 394 QTc: 428 Interpretive Statements Normal sinus rhythm Nonspecific ST and T wave abnormality Electronically Signed On 08-23-2024 20:09:33 PDT by Alan Bowen
[2024-08-20 01:46] LABS: PCO2 ABG 50.2 mmHg (35-45); PO2 ABG 89 mmHg (80-100); pH ABG 7.32 (7.35-7.45)
[2024-08-20 01:47] LABS: Base Excess ABG -1.1 mmol/L (-2-3); Delivery System BIPAP; Fractionated Inspired Oxygen 60 %; HCO3 ABG 26 mmol/L (23-27); Oxygen Saturation ABG 96 % (95-100); TCO2 ABG 25 mmol/L (23-27)
[2024-08-20 01:48] LABS: Pressure Support 6; Respiratory Rate 16
[2024-08-20 01:49] LABS: Allen Test for ABG Passed? Yes, Passed
[2024-08-20 02:13] LABS: Base Excess VBG -1.4 mmol/L (0-4); HCO3 VBG 23 mmol/L (24-28); Oxygen Saturation VBG 70 % (70-75); PO2 VBG 37 mmHg (35-45); Total CO2 VBG 23 mmol/L (24-29); pH VBG 7.39 (7.33-7.43)
--- NOTE | 2024-08-20 04:35 | PC.NURSE ---
Addendum entered by Gina Centeno CNA 08/20/24 05:24: PEDRO note: 0524 spoke to Chelo at [facility]. She said the hospitalists are doing things around the hospital and the call would at shift change or into day shift. Thanked her for her help. Original Note: PEDRO note: Attempting to transfer patient to another hospital. Patient was at [facility] last week for a NSTEMI. Dr. Boyd wants patient to transfer there. Spoke to [facility] nursing mail sorting supervisor Chelo. They have beds and would review chart. at 0300 Chelo called back and said that per her notes patient left [facility] and refused procedures. She had spoken to Dr. Whitley and said she ... only trusts Dr. Segura (in [place])... on 08/11/24. Per Chelo she also declined services in July of 2024. Chelo wanted clarification if patient would accept [facility] cardiology services. Patient said I told Dr. Murrell I would take her services. And if I had any heart stuff I would see her and go to [facility]. She asked to speak to Dr. Murrell and when I said that she wasn't workers' compensation hearings officer today it was Dr. Berg, she said let me talk to Dr. Gunter, he knows my case. I explained again that Dr. Gunter wasn't workers' compensation hearings officer it was Dr. Berg, and would she accept care from Dr. Berg or any of the doctors at [facility] Cardiology group. Patient said she would. I paged Dr. Berg for Dr. Boyd. Called Chelo at [facility], and assured her patient said she would accept care and Dr. Berg accepts the patient. [facility] Chelo said she would page their hospitalist.
--- NOTE | 2024-08-20 05:30 | PC.NURSE ---
Pt resting quietly with eyes closed, resps even and not labored. No distress noted at this time. Pt rouses easily to verbal stimuli. Pt remains connected to cardiac, resp, blood pressure, and pulse ox monitors with alarms on and audible. Call light within reach.
--- NOTE | 2024-08-20 06:30 | PC.NURSE ---
Pt resting quietly with eyes closed, resps even and not labored. No distress noted at this time. Pt rouses easily to verbal stimuli. Pt remains connected to blood pressure, resp, cardiac, and pulse ox monitors with alarms on and audible. Call light within reach.
--- NOTE | 2024-08-20 07:10 | DI.CT.S_ITS ---
PROCEDURE: CT ANGIO CHEST PE PROTOCOL INDICATIONS: hypoxia TECHNIQUE: After the administration of intravenous contrast, 2 mm thick sections acquired from the pulmonary apices to the posterior costophrenic angles. 3-dimensional maximum intensity projection (MIP) coronal and sagittal reformats were then acquired through the thorax. For radiation dose reduction, the following was used: automated exposure control, adjustment of mA and/or kV according to patient size. COMPARISON: [facility], CR, XR CHEST 1V, 08/19/2024, 22:13. FINDINGS: Image quality: Diagnostic. Pulmonary arteries: Pulmonary arteries are normal in size, and demonstrate no intraluminal filling defects to suggest central pulmonary embolism. Lower Neck: No enlarged lymph nodes. Thyroid: No thyroid nodules which require sonographic follow up, per consensus guidelines. Axillae: No enlarged lymph nodes. Chest Wall: Unremarkable. Bones: Age-appropriate bony degenerative changes are seen. Accentuated thoracic kyphosis is seen. Lungs and Pleura: No pneumothorax or pleural effusions. Mild generalized ground-glass opacity can be seen. Mild dependent atelectasis is seen. No consolidation or suspicious nodules. Heart: Heart size is normal. No pericardial effusion. Advanced coronary artery CT calcification with presumed stents can be seen. Thoracic Vessels: No aortic aneurysm. There is narrowing of the right vein, with associated collateral vein formation within the right chest wall. Mediastinum and Analy: Mildly enlarged mediastinal lymph nodes are seen, including a precarinal lymph node measuring 13 x 20 mm. Esophagus: No wall thickening. No hiatal hernia. Upper Abdomen: The spleen is enlarged, measuring 13.7 cm AP. The liver also is enlarged. There is reflux of contrast seen into the inferior vena cava and into the hepatic veins. The visualized portions of the upper abdominal structures are otherwise unremarkable for imaging technique. IMPRESSION: No pulmonary embolus. Generalized ground-glass opacity can be seen within the lungs. This is nonspecific, although mild pulmonary edema is suspected. Mildly enlarged mediastinal lymph nodes are seen, which are most likely reactive. Differential diagnosis includes neoplasm. No cardiomegaly. Note is made of narrowing of the right brachiocephalic vein, with collateral vein formation within the right chest wall. Additional findings: There is advanced coronary artery calcification, with presumed stents Mild hepatosplenomegaly Dictated by: Fawad Iqbal M.D. on 08/20/2024 at 6:53 Approved by: Fawad Iqbal M.D. on 08/20/2024 at 6:58
--- NOTE | 2024-08-20 08:33 | PC.NURSE ---
This RN sathya PTT and repeat troponin at 07:40. Lab called at 0830 and informed that the blood had hemolyized. Phlebotomy came for redraw.
[2024-08-20] MEDS: OXYCODONE/ACETAMINOPHEN 5/325 TABLET 1 TAB PO (08:47)
[2024-08-20] MEDS: FUROSEMIDE 40 MG/4 ML VIAL IV (08:47)
[2024-08-20 08:55] LABS: PTT Partial Thromboplastin Tim 92 SECONDS (25.1-36.5)
--- NOTE | 2024-08-20 09:02 | PC.NURSE ---
This patient PTT came back at 92 at 0856 from lab call. Patient heparin stopped at 0857 with fellow RN. Protocol states to stop infusion for 40 minutes and lower 2 units/kg/hour and repeat ptt 6 hours after restarted.
[2024-08-20 09:03] LABS: Creatine Kinase 49 U/L (30-135)
[2024-08-20 09:22] LABS: Troponin I 0.369 ng/mL (0.01-0.034)
[2024-08-20] MEDS: ASPIRIN 81 MG CHEW TAB 324 MG PO (10:47)
--- NOTE | 2024-08-20 10:51 | PC.NURSE ---
Heparin continues to infuse but was placed on [facility] crew pump. Medication continues to infuse in route. This RN gave verbal report to [facility].
--- NOTE | 2024-08-20 11:06 | PC.NURSE ---
This RN gave verbal report to BARRY Chong from [facility].
== END 2024-08-20 11:09 | disposition short-term general hospital (02) ==
PROVIDERS: Emergency Medicine; Emergency Provider Emergency Medicine; PCP Family Medicine
DX: I21.4 Non-ST elevation (NSTEMI) myocardial infarction (principal); J96.01 Acute respiratory failure with hypoxia; J44.1 Chronic obstructive pulmonary disease with (acute) exacerbation; I50.9 Heart failure, unspecified; R07.9 Chest pain, unspecified
CPT/HCPCS: 36415; 36600; 71045; 71275; 80053; 82550; 82805; 83605; 83735; 83880; 84145; 84484; 85025; 85379; 85730; 87040; 93005; 94640; 94660; 96365; 96366; 96367; 96368; 96375; 99285; 99291; J1644; J1938; Q9967